=== PATIENT | female | born 1975 | race Asian ===

== ENCOUNTER → 2017-02-21 | Outpatient (CLI) | payer OTHER | END | disposition home or self-care (01) | LOC: CFH 10:57 | PROVIDERS: ATTEND Nurse Practitioner Primary Care | DX: Z12.31 Encounter for screening mammogram for malignant neoplasm of breast (principal) | CPT/HCPCS: 77067 ==

== ENCOUNTER → 2017-03-19 | Outpatient (CLI) | payer OTHER ==
[~2017-03-19] MED LIST: GADOBUTROL 7.5 MMOL/7.5 ML VIAL ONE
== END | disposition home or self-care (01) ==
LOC: CFH 09:17
PROVIDERS: ATTEND Nurse Practitioner Primary Care
DX: R41.3 Other amnesia (principal); E61.1 Iron deficiency; E55.9 Vitamin D deficiency, unspecified; K29.70 Gastritis, unspecified, without bleeding; F06.31 Mood disorder due to known physiological condition with depressive features; Z79.899 Other long term (current) drug therapy
CPT/HCPCS: 70553; A9585